=== PATIENT | female | born 1995 | race American Indian/Alaskan Native ===

== ENCOUNTER 2017-06-10 19:54 | Emergency (ER) | payer MEDICAID ==
[2017-06-10 20:43] LABS: Basophils % (Auto) 0.4 % (0.0-1.8); Eosinophils % (Auto) 3.1 % (0.0-4.3); Hemoglobin 11.5 gm/dl (10.1-14.3); Mean Corpuscular HGB Conc 33 % (30-34); Red Cell Distribution Width 15.3 % (13.2-15.2); White Blood Count 8.7 K/mm3 (4.5-11.0)
[2017-06-10 20:48] LABS: Mean Corpuscular Hemoglobin 23 pg (28-32); Mean Corpuscular Volume 70 fl (79-97)
[2017-06-10 20:49] LABS: Platelet Count 261 K/mm3 (140-440)
[2017-06-10 20:51] LABS: Alanine Aminotransferase 10 units/L (7-56); Albumin 4.3 g/dL (3.9-5); Albumin/Globulin Ratio 1.1 %; Alkaline Phosphatase 52 units/L (35-129); Anion Gap 19 mmol/L; BUN/Creatinine Ratio 20; Blood Urea Nitrogen 8 mg/dL (7-17); Calcium 9.2 mg/dL (8.4-10.2); Carbon Dioxide 23 mmol/L (22-30); Glucose 64 mg/dL (65-100); Lipase 34 units/L (13-60); Potassium 3.2 mmol/L (3.6-5.0); Sodium 135 mmol/L (137-145); Total Protein 8.1 g/dL (6.3-8.2)
[2017-06-10 23:58] LABS: Bilirubin,Urine NEG (Negative); Blood,Urine NEG (Negative); Ketones,Urine 20 mg/dL (Negative); Leukocyte Esterase,Urine LG (Negative); Mucus,Urine 3+ /HPF; Nitrite,Urine NEG (Negative)
--- NOTE | 2017-06-11 02:13 | Emergency Department Report ---
HPI - General Chief Complaint: Abdominal Pain Time Seen by Provider: 06/11/17 01:27 - HPI HPI: This is a 22-year-old female presents to the emergency department with complaint of "my gallbladder is acting up" that started earlier today. She has upper abdominal pain and some nausea without vomiting. She also is currently after having a home test that was positive and a last menstrual cycle around April 28. With this she is . She does not have any [facility] or primary care physician. She has not taken anything for her symptoms prior to presentation. No recent travel or sick contacts at home. ED Past Medical Hx - Past Medical History Hx Hypertension: No Hx Heart Attack/AMI: No Hx Congestive Heart Failure: No Hx Diabetes: No Hx Deep Vein Thrombosis: No Hx Renal Disease: No Hx Sickle Cell Disease: No Hx Seizures: No Hx Asthma: Yes Hx COPD: No Hx HIV: No Additional medical history: pancreatitis during - Surgical History Additional Surgical History: - Social History Smoking Status: Never Smoker Substance Use Type: None - Medications Home Medications: Home Medications Medication Instructions Recorded Confirmed Last Taken Type Vit-Fe Fumar-FA [ 1 each PO QDAY #30 tablet 11/27/15 Unknown Rx Vitamin] Cephalexin [Keflex] 500 mg PO Q8HR #21 cap 06/11/17 Unknown Rx Pnv,Calcium 72/Iron/Folic Acid 1 each PO DAILY #30 tablet 06/11/17 Unknown Rx [ Plus Tablet] ED Review of Systems ROS: Stated complaint: ABD PAIN Other details as noted in HPI Comment: All other systems reviewed and negative Constitutional: denies: chills, fever Eyes: denies: eye pain, eye discharge, vision change ENT: denies: ear pain, throat pain Respiratory: denies: cough, shortness of breath, wheezing Cardiovascular: denies: chest pain, palpitations Gastrointestinal: abdominal pain, nausea. denies: vomiting Genitourinary: denies: urgency, dysuria, discharge Musculoskeletal: denies: back pain, joint swelling, arthralgia Skin: denies: rash, lesions Neurological: denies: headache, weakness, paresthesias Physical Exam - Physical Exam Vital Signs: Vital Signs 06/10/17 06/10/17 06/11/17 19:56 20:00 01:39 Temperature 98.4 F 98.5 F Pulse Rate 83 83 85 Respiratory 18 18 18 Rate Blood Pressure 119/60 119/60 Blood Pressure 115/63 [Left] O2 Sat by Pulse 100 100 100 Oximetry 06/11/17 01:44 Temperature Pulse Rate Respiratory 18 Rate Blood Pressure Blood Pressure [Left] O2 Sat by Pulse 100 Oximetry Physical Exam: GENERAL: The patient is well-developed well-nourished. HENT: Normocephalic. Atraumatic. Patient has moist mucous membranes. EYES: Extraocular motions are intact. Pupils equal reactive to light bilaterally. NECK: Supple. Trachea is midline. CHEST/LUNGS: Clear to auscultation. There is no respiratory distress noted. HEART/CARDIOVASCULAR: Regular. There is no tachycardia. There is no gallop rub or murmur. ABDOMEN: Abdomen is soft. There is some mild right upper quadrant and epigastric tenderness to palpation. No guarding or rebound tenderness. No peritoneal signs. Patient has normal bowel sounds. There is no abdominal distention. SKIN: Skin is warm and dry. NEURO: The patient is awake, alert, and oriented. The patient is cooperative. The patient has no focal neurologic deficits. The patient has normal speech and gait. MUSCULOSKELETAL: There is no tenderness or deformity. There is no limitation range of motion. There is no evidence of acute injury. ED Course Vital Signs 06/10/17 06/10/17 06/11/17 19:56 20:00 01:39 Temperature 98.4 F 98.5 F Pulse Rate 83 83 85 Respiratory 18 18 18 Rate Blood Pressure 119/60 119/60 Blood Pressure 115/63 [Left] O2 Sat by Pulse 100 100 100 Oximetry 06/11/17 01:44 Temperature Pulse Rate Respiratory 18 Rate Blood Pressure Blood Pressure [Left] O2 Sat by Pulse 100 Oximetry - Consultations Consultation #1: 06/11/17 04:22 I spoke to the general surgeon software configuration manager, Dr. Buckley, who did not feel that this patient required a HIDA scan at this time. He also says that with the patient possibly , that he would not recommend any type of surgery and usually patients who do have cholecystitis, which this patient does not definitively have, would not normally get surgery until about 8 months gestation. He recommends some antibiotics and follow-up with the [facility]. ED Medical Decision Making - Lab Data Result diagrams: 06/10/17 20:06 06/10/17 20:06 - Radiology Data Radiology results: report reviewed EXAM: US OB T lt; = 14 WEEKS FETUS HISTORY: abd pain, COMPARISON: None available. TECHNIQUE: Several real-time grayscale and color Doppler images were obtained. Transabdominal exam. FINDINGS: The uterus measures 9.5 x 5.5 x 6.6 centimeters. There is a possible tiny intrauterine gestational sac. No pole or yolk sac identified. Gestational sac diameter corresponds to 5 weeks 4 days gestation. No adnexal masses are demonstrated. Right ovary measures 2.5 x 1.2 x 2.7 centimeters. Left ovary measures 3.0 x 2.2 x 3.2 centimeters. Hypoechoic avascular structure left ovary measuring 3.1 x 2.1 x 3.0 centimeters which may reflect corpus luteum. IMPRESSION: Possible tiny intrauterine gestational sac. No pole or yolk sac identified. No adnexal masses are demonstrated. Correlation with serial beta HCGs and followup exam is suggested. 3.1 centimeter hypoechoic structure left ovary which may reflect corpus luteum. Transcribed By: JACOB Dictated By: ADRIAN RADER MD Electronically Authenticated By: ADRIAN RADER MD Signed Date/Time: 06/10/17 8746 EXAM: US ABDOMEN LIMITED HISTORY: Upper abd pain, hx of gallstones/pancreatitis COMPARISON: None available. TECHNIQUE: Several real-time grayscale and color Doppler images were obtained. FINDINGS: Visualized pancreas is unremarkable. Right kidney measures 10.8 centimeters in length. No hydronephrosis. The multiple shadowing gallstones occupying the gallbladder. No definite pericholecystic fluid. Gallbladder wall thickness 2 millimeters within normal limits. No biliary dilatation. The common bile duct measures 3 millimeters. Very mild fatty infiltration of the liver. IMPRESSION: Gallbladder appears to be filled with stones. In the correct clinical setting, findings would be concerning for acute cholecystitis. No biliary dilatation. Very mild fatty infiltration of the liver. Transcribed By: JACOB Dictated By: ADRIAN RADER MD Electronically Authenticated By: ADRIAN RADER MD Signed Date/Time: 06/10/17 5452 - Medical Decision Making 22-year-old female presents with a one-day history of some upper abdominal pain , nausea without vomiting and a history of gallstones. She also is . She has a beta hCG of about 8800. She would not allow the transvaginal ultrasound but the ultrasound that was done showed a possible small intrauterine gestational sac but no current yolk sac or pole. The abdominal ultrasound shows a gallbladder that is filled with stones but no gallbladder wall thickness or biliary dilatation. Her labs are unremarkable including no elevation in the bilirubin, lipase, LFTs. No leukocytosis and no urinary tract infection. The general surgeon was contacted but did not feel that this was any obvious cholecystitis and even if it was that the patient would not be taken to surgery if she is . I discussed with patient the importance of following up in a few days for a repeat hormone level and ultrasound to see if this in fact an early versus miscarriage versus other. She will be started on vitamins. She will be given some antibiotics at the recommendation of the general surgeon. She will return to the ER with any worsening of her symptoms or any acute distress. Vital signs stable throughout her ED course included being afebrile. - Differential Diagnosis cholecystitis, cholelithiasis, , fibroids, gastritis, pancreatitis Critical Care Time: No Critical care attestation.: If time is entered above; I have spent that time in minutes in the direct care of this critically ill patient, excluding procedure time. ED Disposition Clinical Impression: Biliary colic, Hypokalemia Qualifiers: Weeks of gestation: less than 8 weeks Qualified Code(s): Z3A.01 - Less than 8 weeks gestation of Cholelithiasis Qualifiers: Cholelithiasis location: gallbladder Cholecystitis presence: without cholecystitis Biliary obstruction: without biliary obstruction Qualified Code(s) : K80.20 - Calculus of gallbladder without cholecystitis without obstruction Disposition: DC- TO HOME OR SELFCARE Is pt being admited?: No Condition: Stable Instructions: Abdominal Pain (ED), (ED), Biliary Colic (ED) Additional Instructions: Please follow up with a primary care physician in the next few days. I have also given a referral for [facility] practices in the area. You can use Tylenol every 4 hours, using weight-based dosing, as needed for discomfort. I have started you on vitamins. I have also started you on some antibiotics. You will need to return to the emergency department or go to an [facility] in 2-3 days for a repeat hormone level and potentially a repeat ultrasound. Your hormone level today was 8800. If your hormone level is increasing at that time, then a repeat ultrasound may be done and this may just be an early . If your hormone level is decreasing at that time, then potentially this is a nonviable or start of a miscarriage. Return to the emergency Department with any worsening of your symptoms or any acute distress. Prescriptions: Cephalexin [Keflex] 500 mg PO Q8HR #21 cap Pnv,Calcium 72/Iron/Folic Acid [ Plus Tablet] 1 each PO DAILY #30 tablet Referrals: [facility] [Primary Care Provider] - 3-5 Days [facility] [Provider Group] - 3-5 Days [facility] [Provider Group] - 3-5 Days [facility] [Provider Group] - 3-5 Days Time of Disposition: 04:09
--- NOTE | 2017-06-11 03:14 | Ultrasound Report ---
FINAL REPORT EXAM: US ABDOMEN LIMITED HISTORY: Upper abd pain, hx of gallstones/pancreatitis COMPARISON: None available. TECHNIQUE: Several real-time grayscale and color Doppler images were obtained. FINDINGS: Visualized pancreas is unremarkable. Right kidney measures 10.8 centimeters in length. No hydronephrosis. The multiple shadowing gallstones occupying the gallbladder. No definite pericholecystic fluid. Gallbladder wall thickness 2 millimeters within normal limits. No biliary dilatation. The common bile duct measures 3 millimeters. Very mild fatty infiltration of the liver. IMPRESSION: Gallbladder appears to be filled with stones. In the correct clinical setting, findings would be concerning for acute cholecystitis. No biliary dilatation. Very mild fatty infiltration of the liver.
--- NOTE | 2017-06-11 03:21 | Ultrasound Report ---
FINAL REPORT EXAM: US OB \T\lt; = 14 WEEKS FETUS HISTORY: abd pain, COMPARISON: None available. TECHNIQUE: Several real-time grayscale and color Doppler images were obtained. Transabdominal exam. FINDINGS: The uterus measures 9.5 x 5.5 x 6.6 centimeters. There is a possible tiny intrauterine gestational sac. No pole or yolk sac identified. Gestational sac diameter corresponds to 5 weeks 4 days gestation. No adnexal masses are demonstrated. Right ovary measures 2.5 x 1.2 x 2.7 centimeters. Left ovary measures 3.0 x 2.2 x 3.2 centimeters. Hypoechoic avascular structure left ovary measuring 3.1 x 2.1 x 3.0 centimeters which may reflect corpus luteum. IMPRESSION: Possible tiny intrauterine gestational sac. No pole or yolk sac identified. No adnexal masses are demonstrated. Correlation with serial beta HCGs and followup exam is suggested. 3.1 centimeter hypoechoic structure left ovary which may reflect corpus luteum.
[2017-06-11] MEDS ORDERED: K-DUR PO ONE (03:34)
[2017-06-11] MEDS ORDERED: TYLENOL PO ONE (03:34)
[2017-06-11 03:57] VITALS: BP 108/52
== END 2017-06-11 04:26 | disposition home or self-care (01) ==
LOC: ED 19:54
DX: O99.611 Diseases of the digestive system complicating pregnancy, first trimester (principal); K80.70 Calculus of gallbladder and bile duct without cholecystitis without obstruction; E87.6 Hypokalemia; J45.909 Unspecified asthma, uncomplicated; Z98.890 Other specified postprocedural states; Z3A.01 Less than 8 weeks gestation of pregnancy
CPT/HCPCS: 36415; 76705; 76801; 80053; 81001; 83690; 84702; 85025; 99284

== ENCOUNTER 2019-08-20 00:29 | Emergency (ER) | payer MEDICAID ==
[2019-08-20] MEDS ORDERED: ACETAMINOPHEN 325 MG TAB PO ONE (01:51)
[2019-08-20] MEDS ORDERED: ACETAMINOPHEN 325 MG TAB ONE (01:54)
[2019-08-20] MEDS ORDERED: KETOROLAC 30 MG/1 ML INJ IV ONE (05:35)
[2019-08-20] MEDS ORDERED: ONDANSETRON 4 MG/2 ML INJ IV ONE (05:35)
[2019-08-20 06:05] LABS: Basophils % (Auto) 0.3 % (0.0-1.8); Eosinophils # (Auto) 0.4 K/mm3 (0.0-0.4); Hematocrit 31.7 % (30.3-42.9); Hemoglobin 9.8 gm/dl (10.1-14.3); Lymphocytes # (Auto) 2.1 K/mm3 (1.2-5.4); Mean Corpuscular HGB Conc 31 % (30-34); Monocytes # (Auto) 0.5 K/mm3 (0.0-0.8); Monocytes % (Auto) 8.3 % (0.0-7.3); Platelet Count 264 K/mm3 (140-440); Red Blood Count 4.66 M/mm3 (3.65-5.03); Red Cell Distribution Width 17.9 % (13.2-15.2)
[2019-08-20 06:09] LABS: Mean Corpuscular Volume 68 fl (79-97)
[2019-08-20 06:15] LABS: Alanine Aminotransferase 16 units/L (7-56); Albumin 4.2 g/dL (3.9-5); BUN/Creatinine Ratio 12; Blood Urea Nitrogen 7 mg/dL (7-17); Calcium 8.8 mg/dL (8.4-10.2); Hemolysis Index 7
--- NOTE | 2019-08-20 07:23 | Ultrasound Report ---
US OB <= 14 weeks fetus INDICATION / CLINICAL INFORMATION: pelvic pain. COMPARISON: None available. FINDINGS: Intrauterine device is present in the lower uterine segment. Visualized endometrial stripe measures 4 mm. No evidence of intrauterine . Ovaries were not identified. IMPRESSION: 1. No intrauterine . IUD in the lower uterine segment. Signer Name: Amish Rob MD Signed: 08/20/2019 7:19 AM Workstation Name: [id number]
--- NOTE | 2019-08-20 07:32 | Emergency Department Report ---
<SNOWCHRISTAPatriciaMJ - Last Filed: 08/20/19 07:28> ED Abdominal Pain HPI - General Chief Complaint: Abdominal Pain Stated Complaint: PELVIC PAIN Source: patient Mode of arrival: Stretcher Limitations: No Limitations - History of Present Illness Initial Comments: Patient is a A0 24-year-old female who is 6 months and is status post IUD placement 6 months ago presents to the ED with acute onset persistent diffuse lower abdominal pain intermittently for the last 1 week, worse in the last 24 hours after sexual intercourse. Patient also complains of nausea and vomiting. Patient denies vaginal bleeding, vaginal discharge, fever, chills, cough, chest pain, diarrhea, dizziness, syncope or cough, nasal and sinus congestion. MD Complaint: abdominal pain, other (nausea and vomiting, pelvic pain, dyspare unia) -: week(s) Location: suprapubic Radiation: suprapubic Migration to: no migration Severity scale (0 -10): 7 Quality: cramping, aching, sharp Consistency: constant Improves With: nothing Worsens With: movement, other (sexual intercourse) Associated Symptoms: nausea, vomiting, anorexia. denies: diarrhea, fever, dysuria, hematemesis, hematochezia, melena, hematuria, syncope - Related Data LMP Date: 08/18/19 Previous Rx's Medication Instructions Recorded Last Taken Type Vit-Fe Fumar-FA [ 1 each PO QDAY #30 tablet 11/27/15 Unknown Rx Vitamin] Pnv,Calcium 72/Iron/Folic Acid 1 each PO DAILY #30 tablet 06/11/17 Unknown Rx [ Plus Tablet] cephALEXin [Keflex] 500 mg PO Q8HR #21 cap 06/11/17 Unknown Rx Nitrofurantoin Haines/M-Cryst 100 mg PO Q12HR #20 capsule 08/20/19 Unknown Rx [Macrobid CAP] Allergies Allergy/AdvReac Type Severity Reaction Status Date / Time shellfish derived Allergy Itching Verified 11/25/15 16:36 ED Review of Systems Constitutional: denies: chills, fever Eyes: denies: eye pain, eye discharge, vision change ENT: denies: ear pain, throat pain Respiratory: denies: cough, shortness of breath, wheezing Cardiovascular: denies: chest pain, palpitations Endocrine: no symptoms reported Gastrointestinal: abdominal pain, nausea, vomiting. denies: diarrhea Genitourinary: dyspareunia. denies: urgency, dysuria, discharge Musculoskeletal: denies: back pain, joint swelling, arthralgia Skin: denies: rash, lesions Neurological: denies: headache, weakness, paresthesias Psychiatric: denies: anxiety, depression Hematological/Lymphatic: denies: easy bleeding, easy bruising ED Past Medical Hx - Past Medical History Previous Medical History?: Yes Hx Hypertension: No Hx Heart Attack/AMI: No Hx Congestive Heart Failure: No Hx Diabetes: Yes (gestational) Hx Deep Vein Thrombosis: No Hx Renal Disease: No Hx Sickle Cell Disease: No Hx Seizures: No Hx Asthma: Yes Hx COPD: No Hx HIV: No Additional medical history: Gallstones - Surgical History Past Surgical History?: Yes Hx Cholecystectomy: Yes Additional Surgical History: - Social History Smoking Status: Current Every Day Smoker Substance Use Type: Marijuana - Medications Home Medications: Home Medications Medication Instructions Recorded Confirmed Last Taken Type Vit-Fe Fumar-FA [ 1 each PO QDAY #30 tablet 11/27/15 Unknown Rx Vitamin] Pnv,Calcium 72/Iron/Folic Acid 1 each PO DAILY #30 tablet 06/11/17 Unknown Rx [ Plus Tablet] cephALEXin [Keflex] 500 mg PO Q8HR #21 cap 06/11/17 Unknown Rx Nitrofurantoin Haines/M-Cryst 100 mg PO Q12HR #20 capsule 08/20/19 Unknown Rx [Macrobid CAP] ED Physical Exam - General Limitations: No Limitations General appearance: alert, in no apparent distress - Head Head exam: Present: atraumatic, normocephalic, normal inspection - Eye Eye exam: Present: normal appearance, PERRL, EOMI Pupils: Present: normal accommodation - ENT ENT exam: Present: normal exam, normal orophraynx, mucous membranes moist, TM's normal bilaterally, normal external ear exam - Neck Neck exam: Present: normal inspection, full ROM - Respiratory Respiratory exam: Present: normal lung sounds bilaterally. Absent: respiratory distress, wheezes, rales, rhonchi, chest wall tenderness, accessory muscle use, decreased breath sounds - Cardiovascular Cardiovascular Exam: Present: regular rate, normal rhythm, normal heart sounds. Absent: systolic murmur, diastolic murmur, rubs, gallop - GI/Abdominal GI/Abdominal exam: Present: soft, tenderness (palpable suprapubic tenderness, no guarding), normal bowel sounds. Absent: guarding, rebound, hyperactive bowel sounds, hypoactive bowel sounds, organomegaly - Extremities Exam Extremities exam: Present: normal inspection, full ROM, normal capillary refill - Back Exam Back exam: Present: normal inspection, full ROM. Absent: muscle spasm, paraspinal tenderness, vertebral tenderness - Neurological Exam Neurological exam: Present: alert, oriented X3, CN II-XII intact, normal gait, reflexes normal - Psychiatric Psychiatric exam: Present: normal affect, normal mood - Skin Skin exam: Present: warm, dry, intact, normal color. Absent: rash ED Medical Decision Making - Lab Data Result diagrams: 08/20/19 05:38 08/20/19 05:38 - Radiology Data Radiology results: report reviewed, image reviewed Findings [address] [address] Ultrasound Report Signed Patient: NANCY ASH MR#: [id number] 4 : 1995 Acct:[id number] Age/Sex: 24 / F ADM Date: 08/20/19 Loc: ED Attending Dr: Ordering Physician: KHADAR ÁLVAREZ Date of Service: 08/20/19 Procedure(s): US OB <= 14 weeks fetus Accession Number(s): [id number] cc: KHADAR ÁLVAREZ US OB <= 14 weeks fetus INDICATION / CLINICAL INFORMATION: pelvic pain. COMPARISON: None available. FINDINGS: Intrauterine device is present in the lower uterine segment. Visualized endometrial stripe measures 4 mm. No evidence of intrauterine . Ovaries were not identified. IMPRESSION: 1. No intrauterine . IUD in the lower uterine segment. Signer Name: Amish Rob MD Signed: 08/20/2019 7:19 AM Workstation Name: [id number] Transcribed By: TM Dictated By: Amish Rob MD Electronically Authenticated By: Amish Rob MD Signed Date/Time: 08/20/19718 DD/ 5 - Medical Decision Making This is a 24-year-old A0 -[place] female who is 6 months and is status post IUD placement 6 months ago presents to the ED with persistent suprapubic pain and dyspareunia for 1 week worse in the last 24 hours after sexual intercourse nausea and vomiting. In the ED, patient is alert and oriented 3 and is not in distress. Lab test results were reviewed and are all nonactionable except hCG Quant of 55.79 and a positive qualitative serum hCG test. Transvaginal ultrasound shows no intrauterine but shows IUD in the lower uterine segment. Correlating the hCG Quant results and transvaginal ultrasound report, as well as lab test results and patient presenting symptoms, the patient may still be very to be characterized and identified by transvaginal ultrasound. Patient was treated for pain in the ED. Urinalysis is pending. Patient care was transferred to Ms Crain Renuka FERMIN at shift change at 0740 am. Ms. Astudillo showed a vehicle urinalysis test results of the patient according after discussion with the ED attending physician. - Differential Diagnosis Ovarian cyst; UTI; PID; Ectopic ; Constipation ED Disposition Clinical Impression: UTI (urinary tract infection) Disposition: DC-01 TO HOME OR SELFCARE Is pt being admited?: No Does the pt Need Aspirin: No Condition: Stable Instructions: Abdominal Pain (ED) Additional Instructions: Completes her antibiotics as prescribed. He can take Tylenol for pain management. Increase her fluid intake. Be sure to Pee after you have intercourse. Follow-up with her [facility] for further evaluation. Prescriptions: Nitrofurantoin Haines/M-Cryst [Macrobid CAP] 100 mg PO Q12HR #20 capsule Referrals: [facility] [Primary Care Provider] - 3-5 Days [facility] [Provider Group] - 3-5 Days [facility] [Provider Group] - 3-5 Days [facility] [Other] - 3-5 Days <LUCA PEREZ - Last Filed: 08/20/19 09:40> ED Review of Systems ROS: Stated complaint: PELVIC PAIN Other details as noted in HPI ED Course Vital Signs 08/20/19 00:52 Temperature 98.6 F Pulse Rate 86 Respiratory 20 Rate Blood Pressure 134/66 O2 Sat by Pulse 98 Oximetry ED Medical Decision Making - Lab Data Result diagrams: 08/20/19 05:38 08/20/19 05:38 Critical care attestation.: If time is entered above; I have spent that time in minutes in the direct care of this critically ill patient, excluding procedure time. ED Disposition Is pt being admited?: No Does the pt Need Aspirin: No
[2019-08-20 08:48] LABS: Bacteria,Urine 1+ /HPF (Negative); Bilirubin,Urine NEG (Negative); Blood,Urine NEG (Negative); Color,Urine Yellow (Yellow); Mucus,Urine 3+ /HPF
[2019-08-20 15:14] VITALS: BP 93/52
== END 2019-08-20 09:59 | disposition home or self-care (01) ==
LOC: ED 00:29
DX: N39.0 Urinary tract infection, site not specified (principal); J45.909 Unspecified asthma, uncomplicated; F17.200 Nicotine dependence, unspecified, uncomplicated; F12.10 Cannabis abuse, uncomplicated; Z90.49 Acquired absence of other specified parts of digestive tract; Z91.013 Allergy to seafood
CPT/HCPCS: 36415; 76801; 80053; 81001; 83690; 84702; 84703; 85025; 96374; 96375; 99285; J1885; J2405